=== PATIENT | female | born 1965 | race Caucasian/White ===

== ENCOUNTER 2020-07-20 08:15 | Outpatient (CLI) | payer OTHER, SELFPAY ==
--- NOTE | ~2020-07-20 | MM_ITS ---
EXAMINATION: MM screening contra [facility] BI w king HISTORY: Screening mammogram TECHNIQUE: Craniocaudal and mediolateral oblique 3-D tomosynthesis images were obtained and synthetic 2-D images were generated. CAD analysis was submitted and interpreted. COMPARISON: 06/16/2019, 06/10/2018, 04/08/2017 BREAST PARENCHYMAL COMPOSITION: The breasts are almost entirely fatty. FINDINGS: There is no evidence of suspicious mass, calcification, or architectural distortion to sugg est malignancy in either breast. There has been no suspicious interval change. IMPRESSION: 1. No mammographic evidence of malignancy. 2. Recommend routine screening mammography in one year. BI-RADS Category 1: Negative Reviewed, dictated and finalized at location A.
== END 2020-07-20 08:16 | disposition home or self-care (01) ==
LOC: CHSIMG 08:19
PROVIDERS: PCP Internal Medicine; Visit Provider Obstetrics & Gynecology
DX: Z12.31 Encounter for screening mammogram for malignant neoplasm of breast (principal)
CPT/HCPCS: 77063; 77067

== ENCOUNTER 2021-07-26 07:53 | Outpatient (CLI) | payer OTHER, BC, SELFPAY ==
--- NOTE | ~2021-07-26 | MM_ITS ---
EXAMINATION: MM screening [facility] w [facility] HISTORY: Screening TECHNIQUE: Craniocaudal and mediolateral oblique 3-D tomosynthesis images were obtained and synthetic 2-D images were generated. CAD analysis was submitted and interpreted. COMPARISON: Comparison to multiple prior studies sequentially, with oldest reviewed study dated 01/17. BREAST PARENCHYMAL COMPOSITION: There are scattered areas of fibroglandular density. FINDINGS: There is no evidence of suspicious mass, calcification, or architectural distortion to sugg est malignancy in either breast. There has been no suspicious interval change. IMPRESSION: 1. No mammographic evidence of malignancy. 2. Recommend routine screening mammography in one year. BI-RADS Category 1: Negative Reviewed, dictated and finalized at location A.
== END 2021-07-26 07:54 | disposition home or self-care (01) ==
LOC: CHSIMG 07:57
PROVIDERS: PCP Internal Medicine; Visit Provider Obstetrics & Gynecology
DX: Z12.31 Encounter for screening mammogram for malignant neoplasm of breast (principal)
CPT/HCPCS: 77063; 77067

== ENCOUNTER 2022-09-26 08:14 | Outpatient (CLI) | payer OTHER, BC, SELFPAY ==
--- NOTE | ~2022-09-26 | MM_ITS ---
EXAMINATION: MM screening [facility] w [facility] HISTORY: Screening TECHNIQUE: Craniocaudal and mediolateral oblique 3-D tomosynthesis images were obtained and synthetic 2-D images were generated. CAD analysis was submitted and interpreted. COMPARISON: Comparison to multiple prior studies sequentially, with oldest reviewed study dated 03/13. BREAST PARENCHYMAL COMPOSITION: The breasts are almost entirely fatty. FINDINGS: There is no evidence of suspicious mass, calcification, or architectural distortion to sugg est malignancy in either breast. There has been no suspicious interval change. IMPRESSION: 1. No mammographic evidence of malignancy. 2. Recommend routine screening mammography in one year. BI-RADS Category 1: Negative Reviewed, dictated and finalized at location A.
== END 2022-09-26 08:15 | disposition home or self-care (01) ==
LOC: CHSIMG 08:16
PROVIDERS: PCP Internal Medicine; Visit Provider Obstetrics & Gynecology
DX: Z12.31 Encounter for screening mammogram for malignant neoplasm of breast (principal)
CPT/HCPCS: 77063; 77067

== ENCOUNTER 2023-12-04 07:19 | Outpatient (CLI) | payer BC, SELFPAY ==
--- NOTE | ~2023-12-04 | MM_ITS ---
EXAMINATION: MM screening [facility] BI w king HISTORY: Screening mammogram TECHNIQUE: Craniocaudal and mediolateral oblique 3-D tomosynthesis images were obtained and synthetic 2-D images were generated. CAD analysis was submitted and interpreted. COMPARISON: 09/26/2022, 07/26/2021, 08/20/2020 BREAST PARENCHYMAL COMPOSITION: The breasts are almost entirely fatty. FINDINGS: No suspicious mass, calcification, or architectural distortion are identified in either jeaneth ast to suggest malignancy. There has been no suspicious interval change. IMPRESSION: 1. No mammographic evidence of malignancy. 2. Recommend routine screening mammography in one year. BI-RADS Category 1: Negative Reviewed, dictated and finalized at location A. 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
== END 2023-12-04 07:20 | disposition home or self-care (01) ==
LOC: CHSIMG 07:23
PROVIDERS: PCP Internal Medicine; Visit Provider Obstetrics & Gynecology
DX: Z12.31 Encounter for screening mammogram for malignant neoplasm of breast (principal)
CPT/HCPCS: 77063; 77067

== ENCOUNTER 2024-10-06 13:01 | Outpatient (CLI) | payer BC, SELFPAY ==
--- NOTE | ~2024-10-06 | XR_ITS ---
HISTORY: LEFT SHOULDER PAIN, XMONTHS,NKI,LROM COMPARISON: None TECHNIQUE: 4 views of the left shoulder were performed FINDINGS: No acute fracture. The glenohumeral and acromioclavicular joint space is maintained The visualized portion of the adjacent left lung is clear. The humeral head is well seated within the glenoid fossa. IMPRESSION: No acute fracture or anterior dislocation. Reviewed, dictated and finalized at location A. 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
== END 2024-10-06 13:02 | disposition home or self-care (01) ==
LOC: CHSIMG 13:03
PROVIDERS: PCP Internal Medicine; Visit Provider Internal Medicine
DX: M77.8 Other enthesopathies, not elsewhere classified (principal); M25.512 Pain in left shoulder
CPT/HCPCS: 73030

== ENCOUNTER 2024-12-06 08:23 | Outpatient (CLI) | payer BC, SELFPAY ==
--- NOTE | ~2024-12-06 | MM_ITS ---
EXAMINATION: MM screening [facility] w [facility] HISTORY: Screening mammogram TECHNIQUE: Craniocaudal and mediolateral oblique 3-D tomosynthesis images were obtained and synthetic 2-D images were generated. CAD analysis was submitted and interpreted. COMPARISON: 12/04/2023, 09/26/2022, 07/26/2021 BREAST PARENCHYMAL COMPOSITION:Not Dense. The breasts are almost entirely fatty FINDINGS: No suspicious mass, calcification, or architectural distortion are identified in either jeaneth ast to suggest malignancy. There has been no suspicious interval change. IMPRESSION: No mammographic evidence of malignancy. Recommend routine screening mammography in one year. BI-RADS Category 1: Negative Reviewed, dictated and finalized at location . 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
== END 2024-12-06 08:24 | disposition home or self-care (01) ==
LOC: CHSIMG 08:25
PROVIDERS: PCP Internal Medicine; Visit Provider Obstetrics & Gynecology
DX: Z12.31 Encounter for screening mammogram for malignant neoplasm of breast (principal)
CPT/HCPCS: 77063; 77067

== ENCOUNTER 2025-05-25 08:20 | Outpatient (CLI) | payer BC, SELFPAY ==
--- OUTSIDE RECORDS SUMMARY | 2025-05-25 08:25 | XMS_ITS | Clinical Summary ---
Author Organization [facility] Address [address] 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 This disclosure is being madepursuant to the Care Everywhere program and may not contain all information available regarding this patient. 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 Gender Identity Not on file Sexual Orientation Not on file Plan of Treatment Health Maintenance Due Date Last Done Comments COLOGUARD (AGES 45-75) - COL ON CA SCREENING 1966 COLON MONITORING 1966 COLONOSCOPY - COLON CA SCREENING 1966 CT COLONOGRAPHY - COLON CA SCREENING 1966 Colorectal Cancer Screening 1966 FIT - COLON CA SCREENING 1966 FLEX SIG - COLON CA SCREENING 1966 LIPID TESTING 1966 MAMMOGRAM 1966 HIV SCREENING 1981 HEPATITIS C SCREENING 07/06/1984 DTAP/TDAP/TD VACCINES (1 - Tdap) 1985 HEPATITIS B VACCINE (1 of 3 - 19+ 3-dose series) 1985 PNEUMOCOCCAL VACCINE 50+ (1 of 1 - PCV) 2016 ZOSTER VACCINE (1 of 2) 2016 COVID-19 VACCINE ( - 2023-2 5 season) 2024 DEPRESSION SCREENING 11/23/2024 INFLUENZA VACCINE (Season Ended) 2025 HIB VACCINE Aged Out No longer eligi ble based on patient's age to complete this topic HPV VACCINE Aged Out No longer eligi ble based on patient's age to complete this topic MENINGOCOCCAL (Group B) VACC INE SHARED DECISION-MAKING Aged Out No longer eligibl e based on patient's age to complete this topic MENINGOCOCCAL GROUPS A/C/Y/W VACCINE Aged Out No longer eligible b ased on patient's age to complete this topic
--- OUTSIDE RECORDS SUMMARY | 2025-05-25 08:25 | XMS_ITS | Referral Summary ---
Author Organization [facility] Medical Office Building A Address [address] [place] [address] Care Team Providers Care Program Analyst Name Role Phone Gennaro Cruz MD Primary Care Provider Encounters Date Type Department Care Team Description 05/22/2025 Telephone [facility] Primary Care at [address] [place] [address] Gennaro Cruz MD Additional Services Or Orders 05/04/2025 7:30 AM CDT Office Visit [facility] Diabetes Endocrine Care at [address] [place] [address] Dione Boss, GEGE Type 2 diabetes mellitus with hyperglycemia, with long-term current use of insulin (HCC) (Primary Dx); Hypertension associated with type 2 diabetes mellitus (HCC); Hyperlipidemia associated with type 2 diabetes mellitus (HCC); Class 1 obesity due to excess calories with serious comorbidity and body mass index (BMI) of 30.0 to 30.9 in adult from Last 3 Months Allergies Active Allergy Reactions Criticality Noted Date Comments Azithromycin Other (See comments) Reaction: Hives;shortness of breath, Medications blood-glucose meter kit Use to test blood glucose one time each day 1 each 12/02/19 20 Active blood glucose diagnostic (glucose blood) strip Check blood sugar one time a day 100 each 12/02/19 20 Active lancets misc Use to test blood glucose 1 time each day 100 each 12/02/19 20 Active albuterol HFA (ProAir HFA) 90 mcg/actuation inhaler Inhale 2 puffs every 4 (four) hours as needed for wheezing or shortness of breath 8.5 g 6 06/29/20 20 Active pen needle, diabetic 31 gauge x 02/05 needle Use once /day for insulin pen DX E11.65, Z79.4 100 each 3 09/26/20 21 Active SUMAtriptan (IMITREX) 100 mg tablet Take one tablet by mouth at onset of migraine, may repeat after two hours 9 tablet 11 11/11/[address] (PROTONIX) 40 mg EC tablet TAKE ONE TABLET BY MOUTH DAILY 90 tablet 3 08/15/20 24 Active metFORMIN XR (GLUCOPHAGE XR) 500 mg 24 hr tablet TAKE THREE TABLETS BY MOUTH EVERY MORNING 270 tablet 12/12/19 25 Active semaglutide (OZEMPIC) 2 mg/dose (8 mg/3 mL) pen injector injectionIndic ations:type 2 diabetes mellitus Inject 2 mg under the skin every 7 days E11.65 9 mL 3 12/29/19 25 Active amLODIPine-nela azepriL (LOTREL) 10-40 mg per capsule Take 1 capsule by mouth daily 90 capsule 3 01/18/20 25 Active insulin glargine 100 unit/mL (3 mL) pen for injection Inject 36 Units under the skin daily. Fill with basaglar/lant us/semglee which ever insurance will cover please. E11.65 30 mL 5 01/31/20 25 Active metoprolol XL (TOPROL-XL) 50 mg extended release tablet TAKE ONE TABLET BY MOUTH DAILY 90 tablet 3 03/07/20 25 Active FLUoxetine (PROzac) 20 mg capsule TAKE ONE CAPSULE BY MOUTH DAILY 90 capsule 1 04/25/20 25 Active atorvastatin (LIPITOR) 20 mg tablet TAKE ONE TABLET BY MOUTH DAILY 90 tablet 1 05/09/20 25 Active atorvastatin (LIPITOR) 20 mg tablet TAKE ONE TABLET BY MOUTH DAILY 90 tablet 1 01/09/20 25 025 Discontinued Active Problems Problem Noted Date Diagnosed Date Class 1 obesity due to exces s calories with serious comorbidity and body mass index (BMI) of 30.0 to 30.9 in adult 04/01/2024 Assessment & Plan (08/02/2024 8:23 AM CDT): This is a chronic condition which is stable Weight stable since last office visit. Increase Ozempic to 1 mg weekly to promote further weight loss Encouraged healthy eating which includes a low carb diet. Avoiding processed foods, sweets and fried foods. Encouraged 30 minutes of walking at least 5 days per week Assessment & Plan (04/01/2024 9:51 AM CDT): This is a chronic condition which continues Six lbs. Weight loss since last office visit Encouraged healthy eating which includes a low carb diet. Avoiding processed foods, sweets and fried foods. Encouraged 30 minutes of walking at least 5 days per week Discussed that exercise can be broken down into small sessions- for example 2- 15 minutes sessions or 3- 10 minutes sessions. Increase Trulicity to 4.5 mg weekly to promote further weight loss Encounter for screening colonoscopy 05/09/2021 Overview (05/09/2021): Added automatically from request for surgery [id number] Moderate episode of recurrent major depressive d isorder 04/03/2020 Janae White proteinuria 04/03/2020 Sciatica of right side 12/14/2019 Type 2 diabetes mellitus wit h hyperglycemia, with long-term current use of insulin 02/14/2019 Assessment & Plan (08/30/2024 7:51 PM CDT): The patient was counseled on a heart-healthy, diabetic-friendly diet, as well as life-style modification. Education provided on the diagnosis and risks of the disease. We will continue to monitor routine labs. Additionally, She was counseled on routine diabetic eye exams, foot exams, and other preventive care. Assessment & Plan (08/02/2024 8:22 AM CDT): This is a chronic condition which is elevated, not at goal . Goal is less than 7%. Personally reviewed most recent A1c - Lab Results Component Value Date HGBA1C 6.5 08/02/2024 Personally reviewed POC blood sugar- at goal of 80-180 Lab Results Component Value Date POCGLU 127 08/02/2024 Medication- Continue Lantus insulin 40 units daily, Metformin 1500 mg Qpm. Increase ozempic 1mg weekly. Monitor blood sugar 2 times a day. Encouraged annual eye exam. last dilated eye exam was Dr. Sam- 09/14 Monofilament foot exam completed. Protective senses - intact eGFR- >90 Kidney function-normal Urine microalbumin/creatinine ratio - not at goal. Goal is <30 Continue amlodipine/benazepril, metoprolol Assessment & Plan (04/01/2024 9:48 AM CDT): This is a chronic condition which is at goal . Goal is less than 7%. Personally reviewed most recent A1c - Lab Results Component Value Date HGBA1C 6.9 04/01/2024 Personally reviewed POC blood sugar- at goal of 80-180 Lab Results Component Value Date POCGLU 112 04/01/2024 Medication- Continue Lantus insulin 40 units daily, Metformin 1500 mg Qpm. Increase Trulicity 4.5 mg weekly. Monitor blood sugar daily alternating a.m. and p.m.. Encouraged annual eye exam. last dilated eye exam was with Dr. Sam Monofilament foot exam completed. Protective senses intact Personally reviewed CMP eGFR- 108 Kidney function-normal Urine microalbumin/creatinine ratio - not at goal.. Goal is <30 Continue amlodipine/benazepril Assessment & Plan (09/14/2023 10:07 AM CDT): Diagnosed around 2014. Started insulin in November/2019. Control : slightly above target A1c 7.2% on 09/14/23 A1c 6.8% on 03/19/23 A1c 6.7% on 11/20/22 A1c 7.3% on 04/30/22 A1c 7.3% on 03/06/22 Kidney: nephropathy on Lotrel GFR 108 on 04/29/23 Neuropathy : none Plan: Patient to watch diet. Continue Trulicity 3.0 mg once /week. continue insulin Lantus 40 Units. Continue metformin Qpm Monitor sugars 3 x per day and bring records.. Hypoglycemia symptoms and treatment reviewed with patient. Call if having low sugars. Ophthalmology exam on regular basis. Assessment & Plan (03/19/2023 2:13 PM CDT): Diagnosed around 2014. Started insulin in November/2019. Control : in good control A1c 6.8% on 03/19/23 A1c 6.7% on 11/20/22 A1c 7.3% on 04/30/22 A1c 7.3% on 03/06/22 A1c 7.2% on 09/26/21 Kidney: nephropathy on Lotrel GFR 113 on 04/30/22 Neuropathy : none Plan: Continue diet plan Continue Trulicity 3.0 mg once /week. continue insulin Lantus 40 Units. Continue metformin Qpm Monitor sugars 3 x per day and bring records.. Hypoglycemia symptoms and treatment reviewed with patient. Call if having low sugars. Ophthalmology exam on regular basis. Assessment & Plan (11/20/2022 2:35 PM ELEVATOR DISPATCHER): Diagnosed around 2014. Started insulin in November/2019. Control : improved control with diet A1c 6.7% on 11/20/22 A1c 7.3% on 04/30/22 A1c 7.3% on 03/06/22 A1c 7.2% on 09/26/21 A1c 7.9% on 03/26/21 Kidney: nephropathy on Lotrel GFR 113 on 04/30/22 Neuropathy : none Plan: Encouraged patient to work on diet, avoid sweets Continue Trulicity 3.0 mg once /week. continue insulin Lantus 40 Units. Continue metformin Qpm Monitor sugars 3 x per day and bring records.. Hypoglycemia symptoms and treatment reviewed with patient. Call if having low sugars. Ophthalmology exam on regular basis. Assessment & Plan (07/10/2022 1:44 PM CDT): Diagnosed around 2014. Started insulin in November/2019. Control : not at target, fluctuation in sugars based on diet A1c 7.3% on 04/30/22 A1c 7.3% on 03/06/22 A1c 7.2% on 09/26/21 A1c 7.9% on 03/26/21 Kidney: nephropathy on Lotrel GFR 113 on 04/30/22 Neuropathy : none Plan: Encouraged patient to work on diet, avoid sweets Continue Trulicity 3.0 mg once /week. continue insulin Lantus 40 Units. Continue metformin Qpm Monitor sugars 3 x per day and bring records.. Hypoglycemia symptoms and treatment reviewed with patient. Call if having low sugars. Ophthalmology exam on regular basis. Assessment & Plan (03/06/2022 1:46 PM CDT): Diagnosed around 2014. Started insulin in November/2019. Control : not at target, fluctuation in sugars based on diet A1c 7.3% on 03/06/22 A1c 7.2% on 09/26/21 A1c 7.9% on 03/26/21 Kidney: nephropathy on Lotrel GFR 101 on 03/26/21 Neuropathy : none Plan: Encouraged patient to work on diet, avoid sweets Increase physical activity and suggested daily walking. Continue Trulicity 3.0 mg once /week. continue insulin Lantus 40 Units. Continue metformin Qpm Monitor sugars 3 x per day and bring records.. Hypoglycemia symptoms and treatment reviewed with patient. Call if having low sugars. Ophthalmology exam on regular basis. Assessment & Plan (09/26/2021 2:55 PM CDT): Diagnosed around 2014. Started insulin in November/2019. Control : not at target, but improving A1c 7.2% on 09/26/21 A1c 7.9% on 03/26/21 A1c 8.0% on 11/29/20. A1c 8.5% on 08/09/20 A1c 9.2% on 03/29/2020 A1c 11.3% on 12/02/2019. Kidney: nephropathy on Lotrel GFR 101 on 03/26/21 Neuropathy : none Plan: Encouraged patient to work on diet, avoid sweets Increase physical activity and suggested daily walking. Continue Trulicity 3.0 mg once /week. Side effects explained- stop if having nausea with vomiting or abdominal pains. continue insulin Lantus 40 Units. Continue metformin Qpm Monitor sugars 2-3 x per day and bring records.. Hypoglycemia symptoms and treatment reviewed with patient. Call if having low sugars. Ophthalmology exam on regular basis. Medical examinations/reports status 01/05/2015 Overview (02/27/2017): Routine medical exam Intractable migraine 06/06/2014 Overview (02/27/2017): MGRN UNSP W NTRC MGR STD Hypertension associated with type 2 diabetes paco litus 04/08/2014 Overview (02/27/2017): BENIGN HYPERTENSION Assessment & Plan (08/30/2024 7:50 PM CDT): Recommend DASH diet, heart-healthy lifestyle, exercise. Discussed the risks of hypertension. Assessment & Plan (08/02/2024 8:22 AM CDT): This is a chronic condition which is at goal. Goal is less than 140/90 Continue amlodipine/benazepril, metoprolol Encouraged to monitor weight and B/P at home. Encouraged to void caffeine and excessive alcohol consumption as this will elevate B/P Assessment & Plan (04/01/2024 9:49 AM CDT): This is a chronic condition which is at goal after 15 minutes of rest. Not at goal upon arrival to the office. Goal is less than 140/90 Personally reviewed labs. Continue amlodipine/benazepril Encouraged to monitor weight and B/P at home. Explained correct way to take blood pressure. - After 5 minutes of sitting calmly with arm supported. Encouraged to void caffeine and excessive alcohol consumption as this will elevate B/P Encouraged to take medications as prescribed. Assessment & Plan (09/14/2023 10:07 AM CDT): Controlled with medication - continue Lotrel per PCP Assessment & Plan (03/19/2023 2:13 PM CDT): Controlled with medication - continue Lotrel per PCP Assessment & Plan (11/20/2022 2:35 PM ELEVATOR DISPATCHER): Controlled with medication - continue Lotrel per PCP Assessment & Plan (09/26/2021 2:55 PM CDT): Controlled with medication - continue Lotrel per PCP Assessment & Plan (11/03/2018 12:01 PM ELEVATOR DISPATCHER): Recommend DASH diet, heart-healthy lifestyle, exercise. Discussed the risks of hypertension. Gastroesophageal reflux disease 04/08/2014 Overview (02/27/2017): ESOPHAGEAL REFLUX Obstructive sleep apnea syndrome 04/08/2014 Overview (02/27/2017): OBSTRUCTIVE SLEEP APNEA Hyperlipidemia associated with type 2 diabetes geeta lewis 04/08/2014 Overview (02/28/2017): MIXED HYPERLIPIDEMIA Assessment & Plan (08/02/2024 8:22 AM CDT): This is a chronic condition which is not at goal . Goal is LDL less than 70 Continue atorvastatin Encouraged to eat healthy, include fresh fruits and vegetables daily and avoid eating fried foods more than once per week. Assessment & Plan (04/01/2024 9:50 AM CDT): This is a chronic condition which is close to goal . Goal is LDL less than 70 Continue atorvastatin Encouraged to eat healthy, include fresh fruits and vegetables daily and avoid eating fried foods more than once per week. Encouraged to take medications as prescribed. Resolved Problems Problem Noted Date Diagnosed Date Resolved Date Skin lesion 12/08/2013 01/18/2018 Overview (02/26/2017): Benign nevus Immunizations Immunization Administration Dates Next Due Influenza, Quadrivalent, Spl it, Preservative Free, Intramuscular 09/22/2023,09/16/2022,09/17/2021 Influenza, Unspecified 08/31/2024(Deferr ed: Patient Refused),08/22/2020,09/13/2019, 019(Deferred: Patient ill today),08/27/2018 Moderna SARS-CoV-2 Monovalen t Vaccination (12+ YRS) 12/27/2020,11/28/2020 Tdap 05/14/2022 Social History Tobacco Use Types Packs/Day Years Used Date Smoking Tobacco: Never Smokeless Tobacco: Never Tobacco Cessation:Counseling Given: Not Answered Alcohol Use Standard Drinks/Week Comments Yes 0 (1 standard drink = 0.6 oz pur e alcohol) AUDIT-C Answer Date Recorded Q1: How often do you have a drink containing alc ohol? 2-4 times a month 08/31/2024 Q2: How many drinks containi ng alcohol do you have on a typical day when you are drinking? 5 or 6 08/31/2024 Q3: How often do you have si x or more drinks on one occasion? Monthly 08/31/2024 PHQ-2 Answer Date Recorded PHQ-2 Total Score (If total score is 3 or more points, staff should administer the PHQ-9) 0 08/31/2024 Comments No Sex and Gender Information Value Date Recorded Sex Assigned at Not on file Legal Sex Female 11:54 PM ELEVATOR DISPATCHER Gender Identity Not on file Sexual Orientation Not on file Last Filed Vital Signs Vital Sign Reading Time Taken Comments Blood Pressure 128/80 05/04/2025 7:32 AM CDT Pulse 79 08/31/2024 7:57 AM CDT Temperature 36.6 C (97.8 F) 08/31/2024 7:57 AM CDT Respiratory Rate 16 08/31/2024 7:57 AM CDT Oxygen Saturation 98% 08/31/2024 7:57 AM CDT Inhaled Oxygen Concentration - - Weight 81.2 kg (179 lb) 05/04/2025 7:32 AM CDT Height 162.6 cm (5' 4) 05/04/2025 7:32 AM CDT Body Mass Index 30.73 05/04/2025 7:32 AM CDT Plan of Treatment Not on file Procedures Procedure Name Priority Date/Time Associated Diagnosis Comments POCT HEMOGLOBIN A1C Routine 05/04/2025 7 :35 AM CDT Type 2 diabetes mellitus with hyperglycemia, with long-term current use of insulin (HCC) POCT GLUCOSE Routine 05/04/2025 7:33 AM CDT Type 2 diabetes mellitus with hyperglycemia, with long-term current use of insulin (HCC) SCREENING MAMMOGRAM BILATERAL W MAYKEL Schedule Routine, Read Routine (OP Routine) 12/06/2024 DIABETIC EYE EXAM Routine 09/05/2024 EGFR Routine 04/01/2024 9:41 AM CDT Annual physical exam LIPID PANEL Routine 04/01/2024 9:41 AM CDT Annual physical exam ALBUMIN CREATININE RATIO, URINE Routine 04/01/2024 9:41 AM CDT Type 2 diabetes mellitus with hyperglycemia, with long-term current use of insulin (HCC) COLONOSCOPY 07/05/2021 8:30 AM CDT DIABETES FOOT EXAM Routine 04/03/2020 from Last 3 Months or Most Recently Relevant to Health Maintenance Results * (ABNORMAL) POCT hemoglobin A1c (05/04/2025 7:35 AM CDT) Hemoglobin A1C, POC 6.5(A) 4.0 - 5.6 % Blood 05/04/2025 7:35 AM CDT Dione Boss NP POINT OF CARE TEST ORDERABLES F inal Result * POCT glucose (05/04/2025 7:33 AM CDT) Glucose Blood, POC 130 Normal Fasting 70 - 100, Random <200 mg/dL Blood 05/04/2025 7:33 AM CDT us Dione Boss NP POINT OF CARE TEST ORDERABLES F inal Result * Screening Mammogram Bilateral W Maykel (12/06/2024) Anatomical Region Laterality Modality Breast Bilateral Mammography Generic External Data Provider IMG MAMMO PROCEDU RES Final Result * Diabetic Eye Exam (09/05/2024) Generic External Data Provider HEALTH MAINTENANC E Final Result * eGFR (04/01/2024 9:41 AM CDT) eGFR >90 >=60 mL/min/1. 73 m2 Comment: Interpretive Data Reference Interval Normal >/= 90 mL/min/1.73m2 Mildly decreased* 60 - 89 mL/min/1.73m2 Mildly to moderately decreased 45 - 59 mL/min/1.73m2 Moderately to severely decreased 30 - 44 mL/min/1.73m2 Severely decreased 15 - 29 mL/min/1.73m2 Kidney Failure < 15 mL/min/1.73m2 *Relative to young adult level Estimated glomerular filtration rate is determined by the 2020 CKD-EPI equation recommended by the National Kidney Foundation (A Unifying Approach to GFR Estimation: Recommendations of the NKF-ASK Task Force on Reassessing the Inclusion of Race in Diagnosing Kidney Disease, JASN 2020). The CKD-EPI equation should not be used for patients with unstable renal function and has not been validated in children and those over 70. Current interpretive data was last reviewed 2021. Blood 04/01/2024 9:41 AM CDT 04/01/2024 1:22 PM CDT Gennaro Cruz MD LAB BLOOD ORDERABLES Fi nal Result Performing Organization Address [facility] Co de Phone Number MADIE UNGER [phone] [place] [address] * (ABNORMAL) Albumin Creatinine Ratio, Urine (04/01/2024 9:41 AM CDT) Albumin Ur 195.9 mg/L Comment: Interpretive Data No reference range established. Current interpretive data was last revised 2019. Creatinine Ur 171.3 mg/dL MADIE UNGER Comment: Interpretive Data No reference range established. Current interpretive data was last revised 2019. Albumin Creatinine Ratio, Ur 114(H) 1 - 29 mg/g MADIE UNGER Urine 04/01/2024 9:41 AM CDT 04/01/2024 12:50 PM CDT Gennaro Cruz MD LAB URINE ORDERABLES Fi nal Result Performing Organization Address [facility] Co de Phone Number MADIE UNGER [phone] [place] [address] * (ABNORMAL) Lipid panel (04/01/2024 9:41 AM CDT) Cholesterol 198 30 - 199 mg/dL Comment: Interpretive Data Ages < or = 19 years Acceptable: <170 mg/dL Borderline high: 170-199 mg/dL High: >or= 200 mg/dL Ages > or = 20 years Desirable: <200 mg/dL Borderline high: 200-239 mg/dL High: >or= 240 mg/dL Literature References: 1. Expert Panel on Integrated Guidelines for Cardiovascular Health and Risk Reduction in Children and Adolescents. Pediatrics 2011;128:S213 2. NCEP Expert Panel. Circulation 2004;110:227 Current Interpretive Data was last revised on 2018. Triglycerides 152(H) <=149 mg/dL MADIE UNGER Comment: Interpretive Data Ages < or = 9 years Acceptable: <75 mg/dL Borderline high: 75-99 mg/dL High: >or= 100 mg/dL Ages 10 to 20 years Acceptable: <90 mg/dL Borderline high: 90-129 mg/dL High: >or= 130 mg/dL Ages > or = 20 years Desirable: <150 mg/dL Borderline high: 150-199 mg/dL High: 200-499 mg/dL Very high: >or= 499 mg/dL Literature References: 1. Expert Panel on Integrated Guidelines for Cardiovascular Health and Risk Reduction in Children and Adolescents. Pediatrics 2011;128:S213 2. NCEP Expert Panel. Circulation 2004;110:227 Current Interpretive Data was last revised on 2018. HDL 48 >=40 mg/dL MADIE UNGER Comment: Interpretive Data Ages < or = 19 years Acceptable: >45 mg/dL Borderline low: 40-45 mg/dL Low: <40 mg/dL Ages > or = 20 years Desirable: >or= 60 mg/dL Low: <40 mg/dL Literature References: 1. Expert Panel on Integrated Guidelines for Cardiovascular Health and Risk Reduction in Children and Adolescents. Pediatrics 2011;128:S213 2. NCEP Expert Panel. Circulation 2004;110:227 Current Interpretive Data was last revised on 2018. LDL, calculated 120 <=129 mg/dL MADIE UNGER Comment: Interpretive Data Ages < or = 19 years Acceptable: <110 mg/dL Borderline high: 110-129 mg/dL High: >or= 130 mg/dL Ages > or = 20 years Optimal: <100 mg/dL Near optimal: 100-129 mg/dL Borderline high: 130-159 mg/dL High: >160 mg/dL Literature References: 1. Expert Panel on Integrated Guidelines for Cardiovascular Health and Risk Reduction in Children and Adolescents. Pediatrics 2011;128:S213 2. NCEP Expert Panel. Circulation 2004;110:227 Current Interpretive Data was last revised on 2018. Non-HDL Cholesterol 150 mg/dL MADIE UNGER Comment: Interpretive Data Ages < or = 19 years Acceptable: <120 mg/dL Borderline high: 120-144 mg/dL High: >145 mg/dL Ages > or = 20 years When triglycerides are >200 mg/dL, Non-HDL cholesterol is a secondary target of therapy with treatment goals that are 30 mg/dL greater than the LDL cholesterol target. Literature References: 1. Expert Panel on Integrated Guidelines for Cardiovascular Health and Risk Reduction in Children and Adolescents. Pediatrics 2011;128:S213 2. NCEP Expert Panel. Circulation 2004;110:227 Current Interpretive Data was last revised on 2018. Chol/HDL ratio 4 MADIE UNGER Blood 04/01/2024 9:41 AM CDT 04/01/2024 12:50 PM CDT Narrative MADIE UNGER - 04/01/2024 1:43 PM CDT Has the patient been fasting for 8 hours or more?->Yes us Gennaro Cruz MD LAB BLOOD ORDERABLES Fi nal Result MADIE UNGER [id number] [place] [address] * COLONOSCOPY (07/05/2021 8:30 AM CDT) Anatomical Region Laterality Modality Other Narrative Procedure Note Maximilian Watson MD - 07/05/2021 8:30 AM CDT [facility] Patient Name: Josette Hemp Procedure Date: 07/05/2021 8:30 AM Date of : 1965 Admit Type: Outpatient Age: 55 Gender: Female Attending MD: Maximilian Watson M.D. Room: [facility] ENDOSCOPY ROOM 2 Note Status: Finalized Patient Profile: Refer to note in patient chart for documentation of history and physical. Procedure: Colonoscopy Indications: Screening for colorectal malignant neoplasm, Thisis the patient's first colonoscopy Referring MD: Gennaro Cruz M.D. Providers: Maximilian Watson M.D. Impression: - Hemorrhoids found on perianal exam. - One 4 mm polyp in the descending colon, removedwith a cold snare. Resected and retrieved. Recommendation: - Discharge patient to home. - Resume previous diet. - Continue present medications. - Await pathology results. - Repeat colonoscopy in 5 years for surveillance. - Return to primary care physician as previously scheduled. Medicines: Propofol per Anesthesia Complications: No immediate complications. Estimated Blood Loss: Estimated blood loss: none. Procedure: Pre-Anesthesia Assessment: - This assessment was completed [Time ofAssessment] prior to the administration of sedation. The benefits, risks and alternatives of theprocedure and sedation were discussed and informed consentwas obtained. All questions were answered. Please referto the signed informed consent document in the medical record. Bowel prep was administered using a single dose. The bowel preparation used was Miralax and bisacodyl tablets via single dose instruction. The scope was passed under direct vision. TheColonoscope [id number] was introduced through the anus and advanced to the the cecum, identified by appendiceal orifice and ileocecal valve. The colonoscopy was performed without difficulty. The patient tolerated the procedure well. The qualityof the bowel preparation was excellent. Findings: Hemorrhoids were found on perianal exam. A 4 mm polyp was found in the descending colon. The polyp wassessile. The polyp was removed with a cold snare. Resection and retrieval were complete. Verification of patient identification for the specimen was done by the physician and nurse using the patient's name and birthdate. Estimated blood loss was minimal. The exam was otherwise normal throughout the examined colon. Electronically signed by Maximilian Watson M.D. Maximilian Watson M.D. 07/05/2021 9:04:00 AM Number of Addenda: 0 Note Initiated On: 07/05/2021 8:30 AM Procedure Code(s): --- Professional --- 50717, Colonoscopy, flexible; with removal of tumor(s), polyp(s), or other lesion(s) by snare technique Diagnosis Code(s): --- Professional --- K63.5, Polyp of colon K64.9, Unspecified hemorrhoids Z12.11, Encounter for screening for malignant neoplasm of colon CPT copyright 2019 [employer]. All rights reserved. The codes documented in this report are preliminary and upon associate dean of students reviewmay be revised to meet current compliance requirements. Recognized by the [employer] for promoting quality in endoscopy Maximilian Watson MD ENDOSCOPY PROCEDURES Final Re sult * DIABETES FOOT EXAM (04/03/2020) Diabetic Foot Exam Normal Historical Provider HEALTH MAINTENANCE Final Result from Last 3 Months or Most Recently Relevant to Health Maintenance Insurance [facility] LEONIDASBRIANDA GALVAN LEONIDASBRIANDASHILOH [id number] [facility] CHOICE PLUS [facility] H[facility]/PPO Address: [address] [place] [facility] Advance Directives For more information, please contact: [phone] * Full Code (Latest Code Status on File) Date Activated Date Inactivated Comments 07/05/2021 7:38 AM 07/05/2021 2:00 PM Care Teams Program Analyst Relationship Specialty Start Date End Date Gennaro Cruz MD PCP - General 02/20/17
--- OUTSIDE RECORDS SUMMARY | 2025-05-25 08:25 | XMS_ITS | Encounter Summary ---
Author Organization [facility] Address [address] [place] [address] Phone Care Team Providers Care Child Care Cook Name Role Phone Gennaro Cruz MD Primary Care Provider Encounter Details Date Type Department Care Team (Late st Contact Info) Description 01/06/2018 Orders Only [facility] ProviderDonna MD [address] [place] [id number] Social History Tobacco Use Types Packs/Day Years Used Date Smoking Tobacco: Never Alcohol Use Standard Drinks/Week Comments Yes 0 (1 standard drink = 0.6 oz pur e alcohol) Comments Unknown Sex and Gender Information Value Date Recorded Sex Assigned at Not on file Legal Sex Female 11:54 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 Historical Provider LAB BLOOD ORDERABLES Tri l Result documented in this encounter Visit Diagnoses Not on filedocumented in this encounter Care Teams Child Care Cook Relationship Specialty Start Date End Date Gennaro Cruz MD PCP - General 02/20/17 documented as of this encounter
--- OUTSIDE RECORDS SUMMARY | 2025-05-25 08:25 | XMS_ITS | Continuity of Care Document ---
Author Organization [facility] Address [address] [place] [address] Phone Care Team Providers Care Showroom Executive Director Name Role Phone Valentín Fagan MD, FACS Unavailable Unavailab le Advance Directives Directive Yes / No Effective Date File Name No Information Encounters Encounter Description Practice Location Reason(s) For Visit Diagnoses Date Provider Providers Copied on Encounter [facility], [address] [facility] [address], [place], [place], [id number], [place] tel:[phone] [facility] No Information rGacia Laura. [address] [facility], [address], [place], [place], [id number], [place]. tel:[phone] Family History Family Member Type Diagnosis Age At Onset No Information Payers Payer name Insurance type Covered republican ID Authoriza tion(s) [facility] [id number] Social History Type Description Quantity Date Captured Comments Sex Female Smoking Status No Information Chief Complaint And Reason For Visit No Information Reason For Referral Reason For Referral No Information History Of Present Illness Encounter Date Complaint History Of Prese nt Illness No Information Functional Status Date Functional Assessmen t No Information Instructions Date Instruction Additional Infor mation No Information Assessments Type Assessment Date No Information Patient Care Teams Name Effective Dates (start - stop) Status Members No Information
--- OUTSIDE RECORDS SUMMARY | 2025-05-25 08:25 | XMS_ITS | Clinical Summary ---
Author Organization [facility] Address [address] [place] [address] Care Team Providers Care Pot Tender Name Role Phone Gennaro Cruz MD Primary Care Provider Allergies Active Allergy Reactions Criticality Noted Date Comments Azithromycin Other (See comments) Reaction: Hives;shortness of breath, Medications blood-glucose meter kit Use to test blood glucose one time each day 1 each 12/02/19 20 Active blood glucose diagnostic (glucose blood) strip Check blood sugar one time a day 100 each 3 12/02/19 20 Active lancets misc Use to test blood glucose 1 time each day 100 each 3 12/02/19 20 Active albuterol HFA (ProAir HFA) [...] (05/09/2021): Added automatically from request for surgery [id number] Moderate episode of recurrent major depressive d [...] basis. Assessment & Plan (11/20/2022 2:35 PM COLOR MATCHER): Diagnosed around 2014. Started insulin in November/2019. [...] PCP Assessment & Plan (11/20/2022 2:35 PM COLOR MATCHER): Controlled with medication - continue Lotrel per PCP Assessment & Plan (09/26/2021 2:55 PM CDT): Controlled with medication - continue Lotrel per PCP Assessment & Plan (11/03/2018 12:01 PM COLOR MATCHER): Recommend DASH diet, heart-healthy lifestyle, exercise. Discussed [...] lesion 12/08/2013 01/18/2018 Overview (02/26/2017): Benign nevus Encounters Date Type Department Care Team Description 05/22/2025 Telephone [facility] Primary Care at [address] [place] [address] Gennaro Cruz MD Additional Services Or Orders 05/04/2025 7:30 AM CDT Office Visit [facility] at [address] [place] [address] Dione Boss, GEGE Type 2 diabetes mellitus with hyperglycemia, with long-term current use of insulin (HCC) (Primary Dx); Hypertension associated with type 2 diabetes mellitus (HCC); Hyperlipidemia associated with type 2 diabetes mellitus (HCC); Class 1 obesity due to excess calories with serious comorbidity and body mass index (BMI) of 30.0 to 30.9 in adult from Last 3 Months Immunizations Immunization Administration Dates Next Due Influenza, Quadrivalent, Spl it, Preservative Free, Intramuscular 09/22/2023,09/16/2022,09/17/2021 Influenza, Unspecified 08/31/2024(Deferr ed: Patient Refused),08/22/2020,09/13/2019, 019(Deferred: Patient ill today),08/27/2018 Moderna SARS-CoV-2 Monovalen t Vaccination (12+ YRS) 12/27/2020,11/28/2020 Tdap 05/14/2022 Surgical History Surgery Date Site/Laterality Comments REDUCTION MAMMOPLASTY 11/23/2002 - 11/22/2003 BREAST REDUCTION RETINAL DETACHMENT SURGERY 11/23/2007 - 11/22/2008 Left THYROIDECTOMY 11/23/2012 - 11/22/2013 Right thyroid mass COLONOSCOPY 07/05/2021 1st Medical History Medical History Date Comments Hx Other Medical 01-IT RISK ADVISOR Hx Other Medical 02-ENT Hx Other Medical Influenza Type 2 diabetes mellitus (HCC) Hypertension Hyperlipidemia Sleep apnea Diabetes mellitus type I (HCC) Family History Medical History Relation Name Comments Coronary artery disease Father Brooks nary artery disease; Hypertension Father Hypertension; Heart disease Mother Heart disease; Lung cancer Sister Cancer -lung; Relation Name Status Comments Father Mother Sister Social History Tobacco Use Types Packs/Day Years [...] on file Legal Sex Female 11:54 PM COLOR MATCHER Gender Identity Not on file Sexual Orientation Not on file Obstetrics History Last Filed Vital Signs Vital Sign Reading [...] 05/04/2025 7:32 AM CDT Plan of Treatment Health Maintenance Due Date Last Done Comments Hepatitis C Screening 1965 Osteoporosis Screening-Bone Density Scan 1965 Hepatitis B Screening 1984 Pneumococcal vaccine <65 (1 of 2 - PCV) 1985 Zoster Vaccine (1 of 2) 2016 Covid-19 Vaccine (2023-2 5 season) 2024 09/16/2022, 02/25/2022, 10/11/2021, Additional history exists Albumin Creatinine Ratio, Urine 04/01/2025 04/01/2024, 04/29/2023, 04/30/2022, Additional history exists Lipid Panel 04/01/2025 04/01/2024, 06/0 05/2023, 04/30/2022, Additional history exists eGFR 04/01/2025 04/01/2024, 06/0 05/2023, 04/30/2022, Additional history exists Regular Well Visit/Exam 18-64 06/03/2025, 05/21/2023, 05/15/2022, Additional history exists Influenza Vaccine (Season Ended) 2025 09/22/2023, 09/16/2022, 09/17/2021, Additional history exists Foot Exam 08/02/2025 08/02/2024, 05/23, 04/01/2024, Additional history exists Depression Screening 08/31/2025 08/31/2024, 06/03/2024, 03/22/2024, Additional history exists Hemoglobin A1C 11/03/2025 05/04/2025, 02/0 04/2025, 08/02/2024, Additional history exists Breast Cancer Screening-Mammogram 12/06/2025 12/06/2024, 12/04/2023, 09/26/2022, Additional history exists Colon Cancer Screening-Colonoscopy 07/05/2026 07/05/2021 Dilated Eye Exam 09/05/2026 09/05/2024, , 09/14/2023, Additional history exists DTaP/Tdap/Td Vaccine (2 - Td or Tdap) 05/14/2032 05/14/2022 Colon Cancer Screening-CT Colonography Discontinued 07/05/2021 Colon Cancer Screening-DNA Stool Discontinued 07/05/20 21 Colon Cancer Screening-FIT Discontinued 07/05/2021 Colon Cancer Screening-Sigmoidoscopy Discontinued 07/05/2021 Procedures Procedure Name Priority Date/Time Associated Diagnosis [...] insulin (HCC) COLONOSCOPY 07/05/2021 8:30 AM CDT HM DIABETES FOOT EXAM Routine 04/03/2020 from Last 3 Months or Most Recently Relevant to Health Maintenance Results * (ABNORMAL) POCT hemoglobin A1c (05/04/2025 7:35 AM CDT) Hemoglobin A1C, POC 6.5(A) 4.0 - 5.6 % Blood 05/04/2025 7:35 AM CDT us Dione Boss NP POINT [...] BLOOD ORDERABLES Fi nal Result MADIE UNGER [address] [facility] [place] [address] * (ABNORMAL) Albumin Creatinine Ratio, Urine (04/01/2024 9:41 AM CDT) Albumin Ur 195.9 mg/L Comment: Interpretive Data No reference range established. Current interpretive data was last revised 2019. Creatinine Ur 171.3 mg/dL MADIE UNGER Comment: Interpretive Data No reference range established. Current interpretive data was last revised 2019. Albumin Creatinine Ratio, Ur 114(H) 1 - 29 mg/g MADIE Urine 04/01/2024 9:41 AM CDT 04/01/2024 12:50 PM CDT us Gennaro Cruz MD LAB URINE ORDERABLES Fi nal Result MADIE [address] [facility] [place] [address] * (ABNORMAL) Lipid panel (04/01/2024 9:41 AM [...] on 2018. Triglycerides 152(H) <=149 mg/dL MADIE Comment: Interpretive Data Ages < or = [...] revised on 2018. Chol/HDL ratio 4 MADIE Blood 04/01/2024 9:41 AM CDT 04/01/2024 12:50 PM CDT Narrative MADIE UNGER - 04/01/2024 1:43 PM CDT Has the patient been fasting for 8 hours or more?->Yes us Gennaro Cruz MD LAB BLOOD ORDERABLES Fi nal Result MADIE UNGER [address] Department [place] [address] * COLONOSCOPY (07/05/2021 8:30 AM CDT) Anatomical Region Laterality Modality Other Narrative Procedure Note Maximilian Watson MD - 07/05/2021 8:30 AM CDT [facility] Patient Name: Josette Vitale Procedure Date: 07/05/2021 8:30 AM Date of : 1965 Admit Type: Outpatient Age: 55 Gender: Female Attending MD: Maximilian Watson M.D. Room: [facility] ENDOSCOPY ROOM 2 Note Status: Finalized Patient [...] scope was passed under direct vision. TheColonoscope [id number] was introduced through the anus and advanced [...] 8:30 AM Procedure Code(s): --- Professional --- 31245, Colonoscopy, flexible; with removal of tumor(s), polyp(s), or other lesion(s) by snare technique Diagnosis Code(s): --- Professional --- K63.5, Polyp of colon K64.9, Unspecified hemorrhoids Z12.11, Encounter for screening for malignant neoplasm of colon CPT copyright 2019 [employer]. All rights reserved. The codes documented in this report are preliminary and upon glue mill operator reviewmay be revised to meet current compliance requirements. Recognized by the [employer] for promoting quality in endoscopy Maximilian Watson MD ENDOSCOPY PROCEDURES Final Re sult * DIABETES FOOT EXAM (04/03/2020) Diabetic Foot Exam Normal Historical Provider MD HEALTH MAINTENANCE Final Result from Last 3 Months or Most Recently Relevant to Health Maintenance Insurance [place] [id number] [place] [id number] [facility] CHOICE PL[place] [id number] [place] Advance Directives For more information, please contact: [phone] * Full Code (Latest Code Status on File) Date Activated Date Inactivated Comments 07/05/2021 7:38 AM 07/05/2021 2:00 PM Care Teams Pot Tender Relationship Specialty Start Date End Date Gennaro Cruz MD PCP - General 02/20/17
--- OUTSIDE RECORDS SUMMARY | 2025-05-25 08:25 | XMS_ITS | Encounter Summary ---
Author Organization [facility] Address [address] [place] [address] Care Team Providers Care Materials Development Engineer Name Role Phone Gennaro Cruz MD Primary Care Provider Reason for Visit * Reason Onset Date Comments Additional Services Or Orders 05/22/2025 Encounter Details Date Type Department Care Team (Late st Contact Info) Description 05/22/2025 Telephone [facility] Primary Care at [address] [place] [address] Gennaro Cruz MD [address] [place] [address] [address] [place] [address] Additional Services Or Orders Social History Tobacco Use Types Packs/Day Years Used Date Smoking Tobacco: Never Smokeless Tobacco: Never Alcohol Use Standard Drinks/Week Comments [...] on file 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 condition/symptom, date of COVID exposure if applicable): Annual labs Details Regarding Additional Services (e.g. type of home health, type of equipment, type of test, etc.): Labs Where will services be performed? (if outside of the practice, facility name, address, phone/fax offacility): [place] [address] [place] [address] Additional Comments: n/a Does message need to be routed? Yes-Action Needed documented in this encounter Plan of Treatment Not on file documented as of this encounter Visit Diagnoses Not on filedocumented in this encounter Care Teams Materials Development Engineer Relationship Specialty Start Date End Date Gennaro Cruz MD PCP - General 02/20/17 documented as of this encounter
[2025-05-25 09:12] LABS: Hemoglobin A1C. 6.3 % (<5.7)
[2025-05-25 09:13] LABS: MALB Creatinine Ratio 30.5 mg/g (0-30)
[2025-05-25 09:17] LABS: Alanine Aminotransferase 35 U/L (6-35); Albumin Level 4.5 g/dL (3.5-5.1); Alkaline Phosphatase 64 U/L (38-126); Anion Gap 6 mmol/L (4-12); Aspartate Amino Transferase 37 U/L (14-36); Bilirubin,Total 0.8 mg/dL (0.2-1.3); Blood Urea Nitrogen 12 mg/dL (7-17); Calcium 9.1 mg/dL (8.4-10.2); Carbon Dioxide 25 mmol/L (22-30); Chloride 108 mmol/L (98-107); Cholesterol 178 mg/dL (0-200); Estimated Glomerular Filt Rate > 60; Glucose 97 mg/dL (65-110); HDL Direct 48 mg/dL; Osmolality Calculated 287 mOsm/kg (285-295); Potassium 4.4 mmol/L (3.4-5.0); Sodium 139 mmol/L (137-145); Total Protein 7.1 g/dL (6.3-8.2); Triglycerides 115 mg/dL (<150)
== END 2025-05-25 08:21 | disposition home or self-care (01) ==
PROVIDERS: PCP Internal Medicine; Visit Provider Internal Medicine
DX: Z00.00 Encounter for general adult medical examination without abnormal findings (principal); E11.59 Type 2 diabetes mellitus with other circulatory complications; I15.2 Hypertension secondary to endocrine disorders
CPT/HCPCS: 36415; 80053; 80061; 82043; 83036